=== PATIENT | female | born 1950 | race Caucasian/White ===

== ENCOUNTER → 2019-04-22 | Outpatient (CLI) | payer MEDICARE ==
--- NOTE | 2019-04-22 15:00 | Diagnostic Imaging Report ---
INDICATION: Right foot injury with pain. FINDINGS: AP, oblique and lateral views of the right foot are obtained. There are degenerative findings in the midfoot and at the first metatarsophalangeal joint. There is a linear lucency through the distal shaft of fifth proximal phalanx. This corresponds to a skin fold and could be artifactual although appears to be persistent on the lateral image as well. No other fracture is detected. IMPRESSION: Possible nondisplaced fracture involving the distal shaft of fifth proximal phalanx. Correlation with the site of pain is recommended. Otherwise there is underlying arthritis without other acute abnormality detected. Dictated by: Dictated on workstation # [id number]
== END ==
LOC: RAD FS 14:45
PROVIDERS: ATTEND Nurse Practitioner Family
DX: S99.921A Unspecified injury of right foot, initial encounter (principal)
CPT/HCPCS: 73630

== ENCOUNTER → 2019-10-19 | Outpatient (CLI) | payer MEDICARE, OTHER ==
--- NOTE | 2019-10-19 10:59 | Diagnostic Imaging Report ---
INDICATION: Right knee pain, increasing in severity. TIME OF EXAM: 10:38 AM. TECHNIQUE: Multiple views of the right knee were obtained. FINDINGS: There is severe medial and patellofemoral compartmental degenerative change with significant joint space narrowing and marginal spurring. Lesser degenerative changes of the lateral compartment are noted. No fracture, dislocation, or effusion is detected. IMPRESSION: Degenerative changes. No acute bony abnormality is detected. Dictated by: Dictated on workstation # [id number]
== END ==
LOC: RAD FS 10:23
PROVIDERS: ATTEND Nurse Practitioner Family
DX: M17.11 Unilateral primary osteoarthritis, right knee (principal)
CPT/HCPCS: 73562

== ENCOUNTER → 2019-10-24 | Outpatient (CLI) | payer MEDICARE ==
--- NOTE | 2019-10-24 15:38 | Diagnostic Imaging Report ---
PROCEDURE: US Venous Lower Ext Ajit. TECHNIQUE: Multiple real-time grayscale images were obtained over the lower extremities in various projections, bilaterally. Additional duplex Doppler and color Doppler images were also obtained. INDICATION: Bilateral leg pain FINDINGS: The veins have good color filling and compressibility. There is phasic flow and a normal response to augmentation. IMPRESSION: Negative venous Doppler of the lower extremities. Dictated by: Dictated on workstation # [id number]
--- NOTE | 2019-10-24 16:10 | Diagnostic Imaging Report ---
PROCEDURE: US Bilateral lower extremity arterial. TECHNIQUE: Multiple real-time grayscale images are obtained through both lower extremity arterial systems with color Doppler imaging and color Doppler spectral analysis. INDICATION: Claudication. FINDINGS: There are normal triphasic and biphasic waveforms throughout both lower extremities. There are no focally elevated velocities appreciated to suggest stenosis. There are no occlusions. There are no abnormal lower extremity fluid collections or masses. IMPRESSION: Unremarkable bilateral lower extremity arterial duplex. Dictated by: Dictated on workstation # [id number]
--- NOTE | 2019-10-24 16:44 | Diagnostic Imaging Report ---
HISTORY: Pain in the bilateral legs at rest. TECHNIQUE: Ultrasound was used to obtain ankle brachial indices. COMPARISON: None. FINDINGS: Right IRMA: 1.25 Left IRMA: 1.19 IMPRESSION: Normal ankle-brachial indices bilaterally. Dictated by: Dictated on workstation # [id number]
== END ==
LOC: RAD 09:10
PROVIDERS: ATTEND Nurse Practitioner Family
DX: I73.9 Peripheral vascular disease, unspecified (principal); L53.9 Erythematous condition, unspecified
CPT/HCPCS: 93922; 93925; 93970

== ENCOUNTER → 2021-10-29 | Outpatient (CLI) | payer MEDICARE, OTHER | LOC: CARDFS 11:44 | PROVIDERS: ATTEND Nurse Practitioner Family | DX: I51.9 Heart disease, unspecified (principal) | CPT/HCPCS: 93306 ==